=== PATIENT | male | born 1935 | race Caucasian/White ===

== ENCOUNTER 2016-04-29 13:36 | Emergency (ER) | payer MEDICARE, OTHER ==
[~2016-04-29] VITALS: Ht 180.3 cm; Wt 77.3 kg
[~2016-04-29 13:36] MED LIST: ALLERGY MEDICATION; ALLOPURINOL100 MG PO; BYSTOLIC5 MG PO; CLARITIN10 MG PO; HIGH CHOLESTEROL MED; HTN MEDICATION; LEVOTHYROXIN0.075 MG PO; LISINOPRIL/HCTZ1 TA1 PO; PROTONIX40 MG PO; SINGULAIR10 MG PO; SODIUM BICARB PO; ZOCOR40 MG PO
[2016-04-29 13:38] VITALS: BP 189/85; TEMP 97.5
[2016-04-29] MEDS ORDERED: NORCO 325 MG-51 TAB PO (14:19)
[2016-04-29] MEDS ORDERED: CEFTIN500 MG PO (14:19)
[2016-04-29] MEDS ORDERED: TENORMIN 5050 MG/TAB PO (14:26)
[2016-04-29] MEDS ORDERED: ZOCOR 20MG20 MG PO (14:27)
[2016-04-29] MEDS ORDERED: SYNTHROID0.088 MG/T PO (14:29)
[2016-04-29 14:50] VITALS: PULSE 78
== END 2016-04-29 14:58 | disposition home or self-care (01) ==
LOC: COL.ER 13:36
DX: S16.1XXA Strain of muscle, fascia and tendon at neck level, initial encounter (principal); J01.00 Acute maxillary sinusitis, unspecified; M43.6 Torticollis
CPT/HCPCS: J1885

== ENCOUNTER 2016-07-04 13:30 | Inpatient (IN) | payer MEDICARE, OTHER ==
[~2016-07-04] VITALS: Ht 177.8 cm; Wt 75.2 kg
[~2016-07-04 13:30] MED LIST changes: +CEFTIN500 MG PO; +NORCO 325 MG-51 TAB PO; +SYNTHROID0.088 MG/T PO; +TENORMIN 5050 MG/TAB PO; +ZOCOR 20MG20 MG PO
[2016-07-04] MEDS ORDERED: ASPIRIN E.C. 8181 MG PO (13:45)
[2016-07-04] MEDS ORDERED: CLARITIN 1010 MG/TAB PO (14:06)
[2016-07-04] MEDS ORDERED: COZAAR 25MG25 MG/TAB PO (14:07)
[2016-07-04] MEDS ORDERED: TYLENOL 8 HR PO (14:08)
[2016-07-04] MEDS ORDERED: SINGULAIR 110 MG/TAB PO (14:08)
[2016-07-04 14:17] LABS: BASO # 0.1 (0.0-0.2); BASO % 0.8 % (0.0-2.0); EOS # 0.2 (0.0-0.7); EOS % 2.1 % (0-4.0); GRAN % 70.9 % (42.2-75.2); LYMPH # 1.3 (1.2-3.4); LYMPH % 15.7 % (20.0-51.0); MEAN CELL VOLUME 105 fl (80.0-100.0); MEAN CORPUSCULAR HGB CONC 33 g/dl (33.0-37.0); MONO # 0.8 (0.1-0.6); MONO % 9.6 % (1.7-9.3); PLATELET COUNT 259 K/mm3 (130-400); RED BLOOD COUNT 3.05 M/mm3 (4.20-5.60); REDCELL DISTRIBUTION WIDTH-CV 13.2 % (11.5-14.5); WHITE BLOOD COUNT 8.5 K/mm3 (4.8-10.8)
[2016-07-04 14:19] LABS: ALBUMIN 3.8 gm/dL (3.5-5.0); BILIRUBIN,TOTAL 0.7 mg/dL (0.0-1.0); CALCIUM 8.8 mg/dL (8.4-10.2); CREATININE, serum 2.97 mg/dL (0.66-1.25); POTASSIUM 4.8 mmol/L (3.4-5.0); TOTAL PROTEIN 7.1 gm/dL (6.4-8.2)
[2016-07-04 14:20] LABS: INR 1.1 (0.8-3.0); PROTHROMBIN TIME 11.8 SECONDS (9.7-12.8)
[2016-07-04 14:23] LABS: PARTIAL THROMBOPLASTIN TIME 32.7 SECONDS (26.0-37.0)
[2016-07-04 14:32] LABS: TROPONIN-I 1.39 ng/mL (0.000-0.034)
[2016-07-04 15:17] LABS: HEMATOCRIT 31.9 % (42.0-52.0); HEMOGLOBIN 10.6 g/dl (13.5-18.0); MEAN CORPUSCULAR HEMOGLOBIN 35 pg (27.0-31.0)
[2016-07-04] MEDS ORDERED: COZAAR100 MG PO (16:59)
[2016-07-04] MEDS ORDERED: SODIUM BICARBO650 MG PO (17:01)
[2016-07-04 17:40] VITALS: BP 159/73; PULSE 75; TEMP 97.3
[2016-07-04 20:42] VITALS: BP 140/78; PULSE 71; TEMP 98.1
[2016-07-05] VITALS (7 sets, daily range): BP systolic 139–156; BP diastolic 62–81; PULSE 63–78; TEMP 97.5–99.3
[2016-07-05 08:00] LABS: CALCIUM 8.2 mg/dL (8.4-10.2); CREATININE, serum 2.63 mg/dL (0.66-1.25)
[2016-07-06] VITALS (110 sets, daily range): BP systolic 121–168; BP diastolic 62–92; PULSE 51–89; TEMP 97.7–99.2; O2SAT 90–100
[2016-07-06 08:06] LABS: MEAN CELL VOLUME 103 fl (80.0-100.0); MEAN CORPUSCULAR HGB CONC 33 g/dl (33.0-37.0); MEAN PLATELET VOLUME 9.3 fl (7.4-10.4); PLATELET COUNT 246 K/mm3 (130-400); WHITE BLOOD COUNT 6.9 K/mm3 (4.8-10.8)
[2016-07-06 08:11] LABS: CALCIUM 8.5 mg/dL (8.4-10.2); CREATININE, serum 2.61 mg/dL (0.66-1.25); POTASSIUM 4.8 mmol/L (3.4-5.0)
[2016-07-06 08:44] LABS: HEMATOCRIT 33.1 % (42.0-52.0); HEMOGLOBIN 10.9 g/dl (13.5-18.0); MEAN CORPUSCULAR HEMOGLOBIN 34 pg (27.0-31.0)
[2016-07-07] VITALS (337 sets, daily range): BP systolic 111–121; BP diastolic 57–75; PULSE 56–77; TEMP 97–98.1; O2SAT 94–100
[2016-07-07 06:19] LABS: MEAN CELL VOLUME 102 fl (80.0-100.0); MEAN CORPUSCULAR HGB CONC 34 g/dl (33.0-37.0); MEAN PLATELET VOLUME 9.2 fl (7.4-10.4); PLATELET COUNT 209 K/mm3 (130-400); RED BLOOD COUNT 2.83 M/mm3 (4.20-5.60); REDCELL DISTRIBUTION WIDTH-CV 13.1 % (11.5-14.5); WHITE BLOOD COUNT 7.1 K/mm3 (4.8-10.8)
[2016-07-07 06:23] LABS: HEMATOCRIT 28.9 % (42.0-52.0); HEMOGLOBIN 9.8 g/dl (13.5-18.0); MEAN CORPUSCULAR HEMOGLOBIN 35 pg (27.0-31.0)
[2016-07-07 06:31] LABS: CREATININE, serum 2.47 mg/dL (0.66-1.25); POTASSIUM 4.4 mmol/L (3.4-5.0)
[2016-07-07] MEDS ORDERED: PLAVIX 75MG TAB75 MG PO (11:42)
[2016-07-07] MEDS ORDERED: ASPIRIN E.C. 8181 MG PO (11:42)
[2016-07-07] MEDS ORDERED: IMDUR 60MG60 MG/TAB PO (11:43)
[2016-07-07] MEDS ORDERED: NITROSTAT0.4 MG/TAB SL (11:43)
[2016-07-07] MEDS ORDERED: LOPRESSOR 225 MG/TAB PO (11:44)
[2016-07-07] MEDS ORDERED: ZOCOR 40MG40 MG PO (11:45)
[2016-07-07] MEDS ORDERED: PEPCID 20MG TAB20 MG PO (11:45)
== END 2016-07-07 12:50 | disposition home or self-care (01) | DRG 247 ==
LOC: COL.ER 13:30 → MEDICAL 14:43 → ICU 07-06 16:09
PROVIDERS: Family Medicine; Internal Medicine Interventional Cardiology; Internal Medicine Nephrology
PROC: 027034Z Dilation of Coronary Artery, One Artery with Drug-eluting Intraluminal Device, Percutaneous Approach (ICD-10-PCS; principal; 2016-07-06)
PROC: B2111ZZ Fluoroscopy of Multiple Coronary Arteries using Low Osmolar Contrast (ICD-10-PCS; 2016-07-06)
PROC: 4A023N7 Measurement of Cardiac Sampling and Pressure, Left Heart, Percutaneous Approach (ICD-10-PCS; 2016-07-06)
PROC: B2151ZZ Fluoroscopy of Left Heart using Low Osmolar Contrast (ICD-10-PCS; 2016-07-06)
DX: I21.4 Non-ST elevation (NSTEMI) myocardial infarction (principal); E87.2 Acidosis; I12.9 Hypertensive chronic kidney disease with stage 1 through stage 4 chronic kidney disease, or unspecified chronic kidney disease; N18.3 Chronic kidney disease, stage 3 (moderate); Z87.891 Personal history of nicotine dependence; I25.10 Atherosclerotic heart disease of native coronary artery without angina pectoris
CPT/HCPCS: A9270-GY; C1725; C1760; C1769; C1874; C1887; C9600; J0583; J1940; J2250; J3010; J7040; Q9967

== ENCOUNTER 2016-09-12 11:27 | Inpatient (IN) | payer MEDICARE, OTHER ==
[~2016-09-12] VITALS: Ht 180.3 cm; Wt 76.8 kg
[~2016-09-12 11:27] MED LIST changes: +ASPIRIN E.C. 8181 MG PO; +CLARITIN 1010 MG/TAB PO; +COZAAR 25MG25 MG/TAB PO; +COZAAR100 MG PO; +IMDUR 60MG60 MG/TAB PO; +LOPRESSOR 225 MG/TAB PO; +NITROSTAT0.4 MG/TAB SL; +PEPCID 20MG TAB20 MG PO; +PLAVIX 75MG TAB75 MG PO; +SINGULAIR 110 MG/TAB PO; +SODIUM BICARBO650 MG PO; +TYLENOL 8 HR PO; +ZOCOR 40MG40 MG PO
[2016-09-12 12:43] VITALS: BP 156/65; PULSE 68; TEMP 98
[2016-09-12 13:33] LABS: MEAN CELL VOLUME 101 fl (80.0-100.0); MEAN CORPUSCULAR HGB CONC 33 g/dl (33.0-37.0); MEAN PLATELET VOLUME 8.9 fl (7.4-10.4); PLATELET COUNT 273 K/mm3 (130-400); RED BLOOD COUNT 2.83 M/mm3 (4.20-5.60); REDCELL DISTRIBUTION WIDTH-CV 13.4 % (11.5-14.5); WHITE BLOOD COUNT 9.7 K/mm3 (4.8-10.8)
[2016-09-12 13:45] LABS: ADD PATHOLOGY DIFF REVIEW NO; HEMATOCRIT 28.7 % (42.0-52.0); HEMOGLOBIN 9.4 g/dl (13.5-18.0); MEAN CORPUSCULAR HEMOGLOBIN 33 pg (27.0-31.0)
[2016-09-12 13:47] LABS: ADJUSTED CALCIUM 8.3 mg/dL (8.4-10.2); ALBUMIN 3.9 gm/dL (3.5-5.0); BILIRUBIN,TOTAL 0.8 mg/dL (0.0-1.0); C-REACTIVE PROTEIN 3.7 mg/dL (0.0-0.9); CALCIUM 8.2 mg/dL (8.4-10.2); POTASSIUM 4.6 mmol/L (3.4-5.0); TOTAL PROTEIN 6.8 gm/dL (6.4-8.2)
[2016-09-12 14:11] LABS: URIC ACID 8.4 mg/dL (3.5-8.5)
[2016-09-12 14:14] LABS: CREATININE, serum 5.07 mg/dL (0.66-1.25)
[2016-09-12 14:16] LABS: BAND 8 % (0-10); EOSINOPHIL 1 % (0-4); NEUTROPHILS 73 % (42.0-75.2); TOTAL CELLS COUNTED 100
[2016-09-12 14:17] LABS: ANISOCYTOSIS 1+
[2016-09-12 14:18] LABS: PLATELET ESTIMATE NORMAL (NORMAL)
[2016-09-12 15:06] LABS: PH 6 (5-8); SQUAMOUS EPITHELIAL None Seen /hpf; URINE APPEARANCE Clear; URINE BACTERIA None Seen /hpf; URINE BILIRUBIN Negative (NEGATIVE); URINE BLOOD 1+ (NEGATIVE); URINE COLOR Straw; URINE GLUCOSE Negative (NEGATIVE); URINE KETONE Negative (NEGATIVE); URINE RBC 0-2 /hpf; URINE UROBILINOGEN Negative (NEGATIVE)
[2016-09-12 15:45] VITALS: BP 183/72; PULSE 70; TEMP 97.6
[2016-09-12 16:21] LABS: FRACTIONAL EXCRETION OF NA+ 2.5 %
[2016-09-12 16:23] LABS: CREATININE, serum 5.07 mg/dL (0.66-1.25)
[2016-09-12 20:39] VITALS: BP 139/76; PULSE 60; TEMP 98.3
[2016-09-12 23:57] VITALS: BP 155/68; PULSE 95; TEMP 98.3
[2016-09-13 04:17] VITALS: BP 143/74; PULSE 63; TEMP 98.7
[2016-09-13 07:06] LABS: CALCIUM 7.8 mg/dL (8.4-10.2); POTASSIUM 4.9 mmol/L (3.4-5.0)
[2016-09-13 07:10] LABS: CREATININE, serum 5.02 mg/dL (0.66-1.25)
[2016-09-13 08:35] VITALS: BP 149/49; PULSE 95; TEMP 98.5
[2016-09-13 11:58] VITALS: BP 155/70; PULSE 51; TEMP 98.6
[2016-09-13 11:58] LABS: PH 6 (5-8); SQUAMOUS EPITHELIAL 0-2 /hpf; URINE APPEARANCE Clear; URINE BACTERIA None Seen /hpf; URINE BILIRUBIN Negative (NEGATIVE); URINE BLOOD 1+ (NEGATIVE); URINE COLOR Straw; URINE GLUCOSE Negative (NEGATIVE); URINE KETONE Negative (NEGATIVE); URINE RBC None Seen /hpf; URINE UROBILINOGEN Negative (NEGATIVE); URINE WBC 0-2 /hpf
[2016-09-13 15:23] VITALS: BP 147/64; PULSE 59; TEMP 98.3
[2016-09-13 18:02] LABS: URINE PROTEIN:CREAT RATIO 1.14 (0.00-0.14)
[2016-09-13 20:23] VITALS: BP 159/56; PULSE 70; TEMP 97.8
[2016-09-14 00:10] VITALS: BP 152/73; PULSE 62; TEMP 98.2
[2016-09-14 03:48] VITALS: BP 149/65; PULSE 65; TEMP 97.9
[2016-09-14 04:25] LABS: CALCIUM 8.1 mg/dL (8.4-10.2); POTASSIUM 4.6 mmol/L (3.4-5.0)
[2016-09-14 04:29] LABS: CREATININE, serum 4.76 mg/dL (0.66-1.25)
[2016-09-14 04:45] LABS: CREATININE, serum 4.76 mg/dL (0.66-1.25); FRACTIONAL EXCRETION OF NA+ 6.1 %
[2016-09-14 09:16] VITALS: BP 145/57; PULSE 63; TEMP 98.3
== END 2016-09-14 12:15 | disposition home or self-care (01) | DRG 683 ==
LOC: MEDICAL 11:27
PROVIDERS: Internal Medicine Nephrology
DX: N17.0 Acute kidney failure with tubular necrosis (principal); N39.0 Urinary tract infection, site not specified; E87.2 Acidosis; I12.9 Hypertensive chronic kidney disease with stage 1 through stage 4 chronic kidney disease, or unspecified chronic kidney disease; N18.3 Chronic kidney disease, stage 3 (moderate); Z95.5 Presence of coronary angioplasty implant and graft; Z88.0 Allergy status to penicillin; Z87.891 Personal history of nicotine dependence
CPT/HCPCS: G0365; J0882; J7030

== ENCOUNTER 2016-10-31 11:29 | Outpatient (RCR) | payer MEDICARE, OTHER | END 2016-11-01 | disposition home or self-care (01) | LOC: COL.CR | DX: Z48.812 Encounter for surgical aftercare following surgery on the circulatory system (principal); Z95.5 Presence of coronary angioplasty implant and graft; I25.10 Atherosclerotic heart disease of native coronary artery without angina pectoris ==

== ENCOUNTER 2016-11-28 11:25 | Outpatient (RCR) | payer MEDICARE, OTHER | END 2016-12-03 08:17 | disposition home or self-care (01) | LOC: COL.CR 11:25 | DX: Z48.812 Encounter for surgical aftercare following surgery on the circulatory system (principal); Z95.5 Presence of coronary angioplasty implant and graft; I25.10 Atherosclerotic heart disease of native coronary artery without angina pectoris ==

== ENCOUNTER 2020-03-02 18:24 | Emergency (ER) | payer MEDICARE, OTHER ==
[~2020-03-02] VITALS: Ht 177.8 cm; Wt 77.3 kg
[2020-03-02 18:32] VITALS: TEMP 99.2
[2020-03-02 18:59] LABS: BASO % 0.3 % (0.0-2.0); EOS # 0.2 (0.0-0.7); EOS % 1.8 % (0-4.0); GRAN % 78.9 % (42.2-75.2); HEMOGLOBIN 10.6 g/dl (13.5-18.0); LYMPH # 1.3 (1.2-3.4); LYMPH % 9.9 % (20.0-51.0); MEAN CELL VOLUME 96 fl (80.0-100.0); MEAN CORPUSCULAR HEMOGLOBIN 31 pg (27.0-31.0); MEAN CORPUSCULAR HGB CONC 33 g/dl (33.0-37.0); MEAN PLATELET VOLUME 9.2 fl (7.4-10.4); MONO # 1.1 (0.1-0.6); MONO % 8.4 % (1.7-9.3); PLATELET COUNT 214 K/mm3 (130-400); RED BLOOD COUNT 3.39 M/mm3 (4.20-5.60); REDCELL DISTRIBUTION WIDTH-CV 14.2 % (11.5-14.5)
[2020-03-02 19:04] LABS: HEMATOCRIT 32.6 % (42.0-52.0)
[2020-03-02 19:06] LABS: INR 1.1 (0.8-3.0); PROTHROMBIN TIME 12.5 SECONDS (9.7-12.8)
[2020-03-02 19:09] LABS: PARTIAL THROMBOPLASTIN TIME 32.8 SECONDS (26.0-37.0)
[2020-03-02 19:12] LABS: ALBUMIN 4.1 gm/dL (3.5-5.0); CREATININE, serum 3.44 (0.66-1.25); MAGNESIUM 1.3 mg/dL (1.6-2.3); POTASSIUM 4.5 mmol/L (3.4-5.0)
[2020-03-02 19:28] LABS: TROPONIN-I 19.4 ng/mL (0.000-0.035)
[2020-03-02 19:42] LABS: THYROID STIMULATING HORMONE 1.65 uIU/mL (0.465-4.680)
[2020-03-02 21:00] VITALS: BP 159/85; PULSE 88
== END 2020-03-02 21:00 | disposition short-term general hospital (02) ==
LOC: COL.ER 18:24
PROVIDERS: Emergency Medicine
DX: I21.4 Non-ST elevation (NSTEMI) myocardial infarction (principal); I48.20 Chronic atrial fibrillation, unspecified; R79.89 Other specified abnormal findings of blood chemistry; I25.10 Atherosclerotic heart disease of native coronary artery without angina pectoris; Z20.828 Contact with and (suspected) exposure to other viral communicable diseases; Z95.5 Presence of coronary angioplasty implant and graft; Z87.891 Personal history of nicotine dependence; Z88.0 Allergy status to penicillin; Z88.8 Allergy status to other drugs, medicaments and biological substances; Z79.82 Long term (current) use of aspirin; Z79.02 Long term (current) use of antithrombotics/antiplatelets
CPT/HCPCS: J1644

== ENCOUNTER 2020-03-25 10:37 | Outpatient (RCR) | payer MEDICARE, OTHER ==
[~2020-03-25 10:37] MED LIST changes: -SYNTHROID0.088 MG/T PO; +SYNTHROID0.1 MG/TAB PO
[2020-03-25] MEDS ORDERED: COREG 6.256.25 MG/TA PO (17:47)
[2020-03-25] MEDS ORDERED: CORDARONE200 MG/TAB PO (17:48)
[2020-03-25] MEDS ORDERED: NORVASC2.5 MG PO (17:48)
[2020-03-25] MEDS ORDERED: LIPITOR20 MG PO (17:49)
[2020-03-25] MEDS ORDERED: ELIQUIS 2.5 PO (17:49)
[2020-03-28] MEDS ORDERED: ZITHROMAX 250M250 MG PO (10:30)
[2020-03-28] MEDS ORDERED: COREG 3.123.125 MG/T PO (10:32)
[2020-03-28] MEDS ORDERED: SODIUM BICARBO650 MG PO (10:38)
[2020-03-28] MEDS ORDERED: LASIX 40MG TABL40 MG PO (10:40)
[2020-04-11] MEDS ORDERED: COREG 3.123.125 MG/T PO (11:46)
[2020-04-11] MEDS ORDERED: SODIUM BICARBO650 MG PO (11:52)
[2020-04-11] MEDS ORDERED: CORDARONE200 MG/TAB PO (11:52)
[2020-04-11] MEDS ORDERED: IMDUR 60MG60 MG/TAB PO (11:53)
[2020-04-11] MEDS ORDERED: LASIX 40MG TABL40 MG PO (11:54)
[2020-04-11] MEDS ORDERED: LIPITOR20 MG PO (11:55)
[2020-04-11] MEDS ORDERED: COLCRYS0.6 MG PO (11:57)
[2020-04-13] MEDS ORDERED: LASIX 40MG TABL40 MG PO (15:04)
[2020-04-13] MEDS ORDERED: SODIUM BICARBO650 MG PO (15:04)
[2020-04-13] MEDS ORDERED: COREG 3.123.125 MG/T PO (15:06)
== END 2020-04-11 | disposition home or self-care (01) ==
LOC: COL.CR
DX: I21.4 Non-ST elevation (NSTEMI) myocardial infarction (principal)

== ENCOUNTER 2020-03-25 12:35 | Inpatient (IN) | payer MEDICARE, OTHER ==
[2020-03-25] VITALS (302 sets, daily range): BP systolic 152–154; BP diastolic 78–114; PULSE 65–74; TEMP 97.5–98.8; O2SAT 77–100
[~2020-03-25] VITALS: Ht 180.3 cm; Wt 75.9 kg
[2020-03-25 13:14] LABS: BASO # 0.1 (0.0-0.2); BASO % 1.1 % (0.0-2.0); EOS # 0.8 (0.0-0.7); EOS % 6.5 % (0-4.0); GRAN # 7.4 (1.4-6.5); HEMOGLOBIN 10.5 g/dl (13.5-18.0); LYMPH # 2.9 (1.2-3.4); LYMPH % 23.1 % (20.0-51.0); MEAN CELL VOLUME 100 fl (80.0-100.0); MEAN CORPUSCULAR HEMOGLOBIN 32 pg (27.0-31.0); MEAN CORPUSCULAR HGB CONC 32 g/dl (33.0-37.0); MEAN PLATELET VOLUME 9.7 fl (7.4-10.4); MONO # 1.1 (0.1-0.6); MONO % 8.8 % (1.7-9.3); PLATELET COUNT 390 K/mm3 (130-400); REDCELL DISTRIBUTION WIDTH-CV 14.5 % (11.5-14.5)
[2020-03-25 13:17] LABS: ALBUMIN 3.9 gm/dL (3.5-5.0); BILIRUBIN,TOTAL 0.6 mg/dL (0.0-1.0); CALCIUM 8.9 mg/dL (8.4-10.2); CREATININE, serum 4.68 (0.66-1.25); HEMATOCRIT 33.1 % (42.0-52.0); POTASSIUM 5.2 mmol/L (3.4-5.0); TOTAL PROTEIN 6.7 gm/dL (6.4-8.2)
[2020-03-25 14:22] LABS: TROPONIN-I 0.104 ng/mL (0.000-0.035)
[2020-03-25] MEDS ORDERED: COREG 6.256.25 MG/TA PO (17:47)
[2020-03-25] MEDS ORDERED: NORVASC2.5 MG PO (17:48)
[2020-03-25] MEDS ORDERED: CORDARONE200 MG/TAB PO (17:48)
[2020-03-25] MEDS ORDERED: ELIQUIS 2.5 PO (17:49)
[2020-03-25] MEDS ORDERED: LIPITOR20 MG PO (17:49)
[2020-03-25 18:29] LABS: IRON,SERUM 79 ug/dL (35-150)
[2020-03-25 18:38] LABS: TOTAL IRON BINDING CAPACITY 319 ug/dL (261-462)
[2020-03-25 19:32] LABS: INR 1.5 (0.8-3.0); PROTHROMBIN TIME 17.3 SECONDS (9.7-12.8)
[2020-03-25 19:51] LABS: PH 6 (5-8); SQUAMOUS EPITHELIAL None Seen /hpf; URINE APPEARANCE Clear; URINE BACTERIA None Seen /hpf; URINE BILIRUBIN Negative (NEGATIVE); URINE BLOOD 2+ (NEGATIVE); URINE COLOR Colorless; URINE GLUCOSE Negative (NEGATIVE); URINE KETONE Negative (NEGATIVE); URINE LEUKOCYTE ESTERASE Negative (NEGATIVE); URINE NITRATE Negative (NEGATIVE); URINE PROTEIN(semi-quant) Negative (NEGATIVE); URINE UROBILINOGEN Negative (NEGATIVE); URINE WBC 0-2 /hpf
[2020-03-25 19:54] LABS: URINE PROTEIN:CREAT RATIO 1.11 (0.00-0.14)
[2020-03-25 20:06] LABS: COLLECTION METHOD CLEAN CATCH
--- NOTE | 2020-03-25 21:52 | NUR ---
Critical HepXA level recieved, gtt paused Cardiac Rehab Nurse obtained HepXA sample on same arm as heparin gtt while infusing. 2205 phelebtomost back in room obtaining new sample
--- NOTE | 2020-03-25 22:40 | NUR ---
2240 Critical recieved for HepXa 2240 Bedros. notified, and that pt is also on Eliquis. Informed to notifiy MD Yady. Informed pt also off BiPAP on nasal cannula and pt states feeling much better 2240 MD Jovany notified of abovementioned. Heparin gtt ordered to be discontinued, q2hr HepXa requested and order recieved until less than 2.0
[2020-03-26] VITALS (617 sets, daily range): BP systolic 103–143; BP diastolic 49–73; PULSE 63–73; TEMP 97.3–98.4; O2SAT 86–100
[2020-03-26 04:43] LABS: BASO # 0.1 (0.0-0.2); BASO % 0.7 % (0.0-2.0); EOS # 0.3 (0.0-0.7); GRAN # 5.2 (1.4-6.5); GRAN % 74.5 % (42.2-75.2); LYMPH # 0.8 (1.2-3.4); LYMPH % 11.7 % (20.0-51.0); MEAN CELL VOLUME 97 fl (80.0-100.0); MEAN CORPUSCULAR HGB CONC 32 g/dl (33.0-37.0); MEAN PLATELET VOLUME 9.3 fl (7.4-10.4); MONO # 0.6 (0.1-0.6); MONO % 8.8 % (1.7-9.3); REDCELL DISTRIBUTION WIDTH-CV 14.5 % (11.5-14.5)
[2020-03-26 05:03] LABS: ALBUMIN 3.8 gm/dL (3.5-5.0); BILIRUBIN,TOTAL 0.8 mg/dL (0.0-1.0); CALCIUM 9.1 mg/dL (8.4-10.2); CREATININE, serum 4.92 (0.66-1.25); POTASSIUM 4.8 mmol/L (3.4-5.0); TOTAL PROTEIN 6.6 gm/dL (6.4-8.2)
--- NOTE | 2020-03-26 05:13 | NUR ---
MD Jovany notified of most recent platlet drop and HepXa level, pt is asymptomatic with no signs of bleeding Orders recieved to discontinue q2hr serial HepXa/PTT labs, as "HepXa levels will be artificially high due to pt being on eliquis" per MD Jovany Pt updated, no questions or concerns. Pt wishes to go back to sleep
[2020-03-26 05:14] LABS: HEMATOCRIT 30.1 % (42.0-52.0); HEMOGLOBIN 9.6 g/dl (13.5-18.0); MEAN CORPUSCULAR HEMOGLOBIN 31 pg (27.0-31.0)
[2020-03-26 05:15] LABS: PLATELET COUNT 241 K/mm3 (130-400)
[2020-03-26 05:18] LABS: PARTIAL THROMBOPLASTIN TIME 40.5 SECONDS (26.0-37.0)
[2020-03-26 05:33] LABS: TSH w REFLEX 3.52 uIU/mL (0.465-4.680)
--- NOTE | 2020-03-26 08:00 | NUR ---
Shift assessment complete at this time. Plan of care reviewed at bedside with patient. Additional time taken to address any other needs or concerns. Vitals stable at this time. Denies pain or any other discomforts. Bed in low position, call light within reach.
--- NOTE | 2020-03-26 13:29 | NUR ---
SW was not able to contact patient, and so called patients Mahsa to complete intake assessment. SP indicated that patient currently resides in [facility] with SP(Mahsa) [phone] as care support and EMR. Patient was independeent with ADL's and does have a DPOA. SP reports that patient utilizes a CPAP machine at night, and a toilet rise. Patient's PCP is Dr. Land, with no upcoming appointments. Patient receives medications from [facility] pharmacy with no concerns. SP declined [facility] services at this time, and was educated about community resources.
--- NOTE | 2020-03-26 18:16 | NUR ---
PT ARRIVED to unit @ 1730 via wheelchair and assisted by one to bathroom an had a BM. Steady standby ambulation. Tele order complete on transfer but discussed with ICU tranferring nurse and likely error. PT with hx of Afib and CAD. will leave tele overnight and re-assess with dr Ely in Am. 24hr urine collection started @ 1730. denies pain. no major skin issues noted but some redness to left back from telemtry patch. Rascon intact and draining. on 2L NC. VSS as charted. IV to lt fa intact and iron infusion complete. dinner served and pt ate 60%. call light within reach. report given to oncoming nurse Salena.
--- NOTE | 2020-03-26 20:00 | NUR ---
Report recieved, assumed care for maintenance technician 2nd shift. Assessment complete. VS stable. A&Ox3. Denies chest pain/nausea. States only gets short of breath with activity. O2@2L/NC. INT to left forearm flushes without difficulty. Rascon cath with deisi colored urine-on ice due to 24 hour urine collection. Fluid restriction being enforced. Plan of care discussed for this shift to include HS meds/calling for needs. Verbalizes understanding. Call light in reach. Will monitor.
[2020-03-27] VITALS (8 sets, daily range): BP systolic 102–131; BP diastolic 41–75; PULSE 59–72; TEMP 97.6–98.5
--- NOTE | 2020-03-27 | NUR ---
Resting in bed eyes closed. 24 hour urine collection continues-fresh ice applied. Minimal output at this time. Has followed fluid restriction well so far this shift. Denies pain/nausea/shortness of breath. VS have been stable. Denies questions/concerns. Call light in reach. Will monitor.
--- NOTE | 2020-03-27 05:24 | NUR ---
Rested well this shift. Denied pain/nausea. Short of breath with activity. Ambulated to bathroom with stand by assist-had a large liquid BM. Vitals remained stable. 24 hour urine collection continues-350 out for this shift. Fluid restriction enforced. Denies questions/concerns. Call light in reach. Will monitor.
[2020-03-27 06:09] LABS: ALBUMIN 3.3 gm/dL (3.5-5.0); BASO % 0.7 % (0.0-2.0); BILIRUBIN,TOTAL 0.5 mg/dL (0.0-1.0); CALCIUM 8.7 mg/dL (8.4-10.2); CREATININE, serum 4.87 (0.66-1.25); EOS # 0.4 (0.0-0.7); EOS % 6.5 % (0-4.0); GRAN % 64.5 % (42.2-75.2); LYMPH % 15.8 % (20.0-51.0); MEAN CELL VOLUME 98 fl (80.0-100.0); MEAN CORPUSCULAR HGB CONC 33 g/dl (33.0-37.0); MEAN PLATELET VOLUME 9.5 fl (7.4-10.4); MONO # 0.8 (0.1-0.6); MONO % 12.2 % (1.7-9.3); PLATELET COUNT 212 K/mm3 (130-400); POTASSIUM 4.5 mmol/L (3.4-5.0); RED BLOOD COUNT 2.75 M/mm3 (4.20-5.60); REDCELL DISTRIBUTION WIDTH-CV 14.3 % (11.5-14.5); TOTAL PROTEIN 5.8 gm/dL (6.4-8.2)
[2020-03-27 06:26] LABS: HEMATOCRIT 26.8 % (42.0-52.0); HEMOGLOBIN 8.7 g/dl (13.5-18.0); MEAN CORPUSCULAR HEMOGLOBIN 32 pg (27.0-31.0)
--- NOTE | 2020-03-27 07:28 | NUR ---
Bedside shift report recieved. pt resting in bed. awoke when we came into room. would like some more sleep. call light within reach. AOX4.
--- NOTE | 2020-03-27 09:17 | NUR ---
MORNING MEDS GIVEN. PT AOX4. denies SOB or chest pain. low BP thus coreg and norvasc. no other needs at this time. denies vertigo. 24 urne collection ongoing.
--- NOTE | 2020-03-27 11:08 | NUR ---
order clarified to DC tele. Dr Ely also notified of low BP 104/45 and help matt and coreg
--- NOTE | 2020-03-27 18:00 | NUR ---
zaire dc'd @ 1800. no complications noted
[2020-03-27 18:02] LABS: URINE TOTAL VOLUME 800 mL
[2020-03-27 18:12] LABS: CREATININE, serum 4.72 (0.66-1.25)
[2020-03-27 18:13] LABS: URINE CREATININE CLEARANCE 10.1 mL/min (97-137)
--- NOTE | 2020-03-27 19:30 | NUR ---
RECEIVED CHANGE OF SHIFT REPORT FROM DAY SHIFT NURSEZAHRA.
[2020-03-28 03:24] VITALS: BP 113/56; PULSE 63; TEMP 98.1
[2020-03-28 06:19] LABS: BASO # 0.1 (0.0-0.2); BASO % 0.9 % (0.0-2.0); EOS # 0.5 (0.0-0.7); EOS % 7.1 % (0-4.0); GRAN # 3.9 (1.4-6.5); GRAN % 59.8 % (42.2-75.2); LYMPH # 1.3 (1.2-3.4); LYMPH % 20.2 % (20.0-51.0); MEAN CELL VOLUME 96 fl (80.0-100.0); MEAN CORPUSCULAR HGB CONC 32 g/dl (33.0-37.0); MEAN PLATELET VOLUME 9.4 fl (7.4-10.4); MONO # 0.7 (0.1-0.6); MONO % 11.1 % (1.7-9.3); PLATELET COUNT 222 K/mm3 (130-400); RED BLOOD COUNT 2.81 M/mm3 (4.20-5.60); REDCELL DISTRIBUTION WIDTH-CV 14.3 % (11.5-14.5)
[2020-03-28 06:26] LABS: ALBUMIN 3.3 gm/dL (3.5-5.0); BILIRUBIN,TOTAL 0.4 mg/dL (0.0-1.0); CALCIUM 8.8 mg/dL (8.4-10.2); CREATININE, serum 4.89 (0.66-1.25); POTASSIUM 4.1 mmol/L (3.4-5.0)
[2020-03-28 06:31] LABS: HEMATOCRIT 27.1 % (42.0-52.0); HEMOGLOBIN 8.7 g/dl (13.5-18.0); MEAN CORPUSCULAR HEMOGLOBIN 31 pg (27.0-31.0)
--- NOTE | 2020-03-28 07:38 | NUR ---
CHANGE OF SHIFT REPORT GIVEN TO DAY SHIFT NURSEHARI.
[2020-03-28 08:02] VITALS: BP 116/47; PULSE 63; TEMP 98.2
--- NOTE | 2020-03-28 08:17 | NUR ---
Assessment complete. Patient sitting up in bed with breakfast at this time. States that he feels great and is eager to go home. No complaints of pain or discomfort. IV site is CD&I, flushed well. No evident edema in upper or lower extremities. Pt denies SOB. Will continue to monitor. Call light is in reach.
[2020-03-28] MEDS ORDERED: ZITHROMAX 250M250 MG PO (10:30)
[2020-03-28] MEDS ORDERED: COREG 3.123.125 MG/T PO (10:32)
[2020-03-28] MEDS ORDERED: SODIUM BICARBO650 MG PO (10:38)
[2020-03-28] MEDS ORDERED: LASIX 40MG TABL40 MG PO (10:40)
[2020-03-28 11:25] VITALS: BP 108/58; PULSE 63; TEMP 97.9
--- NOTE | 2020-03-28 13:28 | NUR ---
First visit from the health information clerk. No needs right now.
--- NOTE | 2020-03-28 16:19 | NUR ---
Patient left the floor at this time. Discharge paperwork was discussed. No further questions or concerns were expressed.
== END 2020-03-28 16:20 | disposition home or self-care (01) | DRG 193 ==
LOC: COL.ER 12:35 → ICU 13:34 → MEDICAL 03-26 17:34
PROVIDERS: Family Medicine; Internal Medicine Cardiovascular Disease; ADMIT Internal Medicine Nephrology
DX: J18.9 Pneumonia, unspecified organism (principal); J96.01 Acute respiratory failure with hypoxia; N18.4 Chronic kidney disease, stage 4 (severe); E87.2 Acidosis; I16.1 Hypertensive emergency; I50.30 Unspecified diastolic (congestive) heart failure; N17.9 Acute kidney failure, unspecified; I13.0 Hypertensive heart and chronic kidney disease with heart failure and stage 1 through stage 4 chronic kidney disease, or unspecified chronic kidney disease; Z20.828 Contact with and (suspected) exposure to other viral communicable diseases; E03.9 Hypothyroidism, unspecified; I48.91 Unspecified atrial fibrillation; D63.1 Anemia in chronic kidney disease; R73.9 Hyperglycemia, unspecified; R79.89 Other specified abnormal findings of blood chemistry; M17.10 Unilateral primary osteoarthritis, unspecified knee; I25.10 Atherosclerotic heart disease of native coronary artery without angina pectoris; M10.9 Gout, unspecified; E87.5 Hyperkalemia; I25.2 Old myocardial infarction; E78.5 Hyperlipidemia, unspecified; Z79.82 Long term (current) use of aspirin; Z95.818 Presence of other cardiac implants and grafts; Z87.891 Personal history of nicotine dependence; Z88.0 Allergy status to penicillin
CPT/HCPCS: J1644; J1940; J2916; Q5106

== ENCOUNTER 2021-01-11 13:32 | Inpatient (IN) | payer MEDICARE, OTHER ==
[~2021-01-11] VITALS: Ht 180.3 cm; Wt 72.7 kg
--- NOTE | 2021-01-11 00:48 | NUR ---
Dr. Ely notified to request order for telemetry implementation and VTE prophylaxis. Received verbal orders to implement telemetry and begin SCDs for VTE prophylaxis.
[~2021-01-11 13:32] MED LIST changes: +COLCRYS0.6 MG PO; +CORDARONE200 MG/TAB PO; +COREG 3.123.125 MG/T PO; +COREG 6.256.25 MG/TA PO; +ELIQUIS 2.5 PO; +LASIX 40MG TABL40 MG PO; +LIPITOR20 MG PO; +NORVASC2.5 MG PO; +ZITHROMAX 250M250 MG PO
[2021-01-11 13:42] LABS: BASO # 0.1 K/mm3 (0.0-0.2); BASO % 0.6 % (0.0-2.0); EOS # 0.3 K/mm3 (0.0-0.7); EOS % 3.9 % (0-4.0); GRAN # 5.6 K/mm3 (1.4-6.5); GRAN % 69.6 % (42.2-75.2); HEMATOCRIT 35.1 % (42.0-52.0); HEMOGLOBIN 11.7 g/dl (13.5-18.0); LYMPH # 1.3 K/mm3 (1.2-3.4); LYMPH % 16.1 % (20.0-51.0); MEAN CELL VOLUME 108 fl (80.0-100.0); MEAN CORPUSCULAR HEMOGLOBIN 36 pg (27.0-31.0); MEAN CORPUSCULAR HGB CONC 33 g/dl (33.0-37.0); MEAN PLATELET VOLUME 8.9 fl (7.4-10.4); MONO # 0.7 K/mm3 (0.1-0.6); PLATELET COUNT 197 K/mm3 (130-400); RED BLOOD COUNT 3.26 M/mm3 (4.20-5.60); REDCELL DISTRIBUTION WIDTH-CV 14.4 % (11.5-14.5)
[2021-01-11 14:11] LABS: TROPONIN-I 0.049 ng/mL (0.00-0.033)
[2021-01-11 14:22] LABS: ARTERIAL BLD GAS O2 SATURATION 91.9 % (92-100); ARTERIAL BLD GAS TCO2 CT 23.5; ARTERIAL BLOOD GAS BASE EXCESS -0.8 (-2-2); ARTERIAL BLOOD GAS HCO3 22.5 meq/L (22-26); ARTERIAL BLOOD GAS PCO2 32.7 mmHg (35-45); ARTERIAL BLOOD GAS PO2 61.8 mmHg (80-100); ARTERIAL BLOOD GAS pH 7.46 (7.35-7.45)
[2021-01-11 14:46] LABS: ALBUMIN 4.1 gm/dL (3.4-4.8); BILIRUBIN,TOTAL 0.7 mg/dL (0.2-1.2); CREATININE, serum 5.5 mg/dL (0.72-1.25); POTASSIUM 4.6 mmol/L (3.5-4.5)
[2021-01-11 17:34] VITALS: BP 133/64; PULSE 69; TEMP 98.6
--- NOTE | 2021-01-11 17:57 | NUR ---
PATIENT TOLERATED HD TX WITH 2.45 L OF FLUID REMOVED. NEXT HD TX PENDING LABS & ASSESSMENT.
[2021-01-11 19:09] VITALS: BP 139/68; PULSE 60; TEMP 97.4
[2021-01-11] MEDS ORDERED: COREG 3.123.125 MG/T PO (19:43)
--- NOTE | 2021-01-11 19:51 | NUR ---
RECEIVED REPORT FROM DAY SHIFT, PT MED REC NOT COMPLETED. MEDICATIONS FAXED FROM [facility]. PT NOT A GOOD HISTORIAN OF CURRENT TIME HE TAKES MEDICATIONS, STATING "I PULL THEM OUT AND NUMBER THEM." DR. MORA SUCCESSFULLY NOTIFIED OF COMPLETED MED REC AND UNKNOWN TIMES.
--- NOTE | 2021-01-11 21:30 | NUR ---
Pt assessment and med rec completed to best of ability. Pt given gown to change in. Pt alert and oriented. Pt lungs clear to auscultation, non-productive cough noted. Pt states cough started today. Pt has umbilical hernia, states he has had it for quite some time. Denies pain with palpation of abdomen. Pt denies SOA or pain at this time. Pt denies having anyone come speak with him about procedure in AM. PT present at bedside when received on floor. Pt independent in room at this time. Call light within reach.
[2021-01-11 23:08] VITALS: BP 117/55; PULSE 61; TEMP 98.9
--- NOTE | 2021-01-11 23:41 | NUR ---
PT UPDATED ON SCHEDULE FOR PROCEDURES TOMORROW. PT STATES HAS LIST OF NUMBERED MEDICATIONS FOR MEDICATION RECONCILIATION. MED REC UPDATED AT THIS TIME. PT AND PT STATE PREFERRED PHARMACY IS [facility] [place], MAILED IN MEDICATIONS. HOWEVER, IF NEEDED IMMEDIATELY, THEY USE [facility] IN [place], [place].
[2021-01-12 04:08] VITALS: BP 132/47; PULSE 56; TEMP 98.4
--- NOTE | 2021-01-12 04:57 | NUR ---
PT CONTINUING ON PLAN OF CARE. PT MAINTAINED NPO STATUS AT 0000. PT ABLE TO AMBULATE INDEPENDENTLY IN ROOM. PT VITAL SIGNS STABLE THIS SHIFT, TELEMETRY SINUS RHYTHM. PT FREE FROM INJURY THIS SHIFT.
--- NOTE | 2021-01-12 05:39 | NUR ---
NOTIFIED ON-CALL CARDIOLOGY, DR. SEYMOUR OF NEEDING PROVIDER TO EDUCATED PT IN ORDER TO OBTAIN INFORMED CONSENT FOR PROCEDURE THIS AM. RECEIVED INSTRUCTION TO CALL DR. MOYER AT 0630 OR 0730 FOR EDUCATION.
--- NOTE | 2021-01-12 06:34 | NUR ---
NOTIFIED DR. MOYER OF NEEDING EDUCATION PRIOR TO SIGNING INFORMED CONSENT. INSTRUCTED TO CALL [facility]. MULTIPLE ATTEMPTS TO FIND CORRECT NUMBER, UNABLE TO FIND. WILL PASS ON TO DAY SHIFT NEED FOR INFORMED CONSENT.
[2021-01-12 07:48] LABS: HEMOGLOBIN 10.4 g/dl (13.5-18.0); MEAN CELL VOLUME 108 fl (80.0-100.0); MEAN CORPUSCULAR HEMOGLOBIN 36 pg (27.0-31.0); MEAN CORPUSCULAR HGB CONC 33 g/dl (33.0-37.0); MEAN PLATELET VOLUME 9.1 fl (7.4-10.4); PLATELET COUNT 197 K/mm3 (130-400); RED BLOOD COUNT 2.91 M/mm3 (4.20-5.60); REDCELL DISTRIBUTION WIDTH-CV 14.5 % (11.5-14.5)
[2021-01-12 07:54] LABS: HEMATOCRIT 31.3 % (42.0-52.0)
[2021-01-12 07:57] LABS: CALCIUM 8.9 mg/dL (8.4-10.2); CREATININE, serum 4.72 mg/dL (0.72-1.25); POTASSIUM 4.2 mmol/L (3.5-4.5); PROTHROMBIN TIME 11.5 SECONDS (9.7-12.8)
[2021-01-12 07:58] VITALS: BP 137/64; PULSE 62; TEMP 98
[2021-01-12 08:01] LABS: PARTIAL THROMBOPLASTIN TIME 26.6 SECONDS (26.0-37.0)
--- NOTE | 2021-01-12 09:10 | NUR ---
Pt pleasant states he feels a little nervous about today. Some brusing noted to left forearm. Iv siete intact no reddness/swelling/pain at site. Cardiology in to see pt for information regarding procedure. Pt stated in his own words what procedure is and what will be performed.
--- NOTE | 2021-01-12 09:26 | NUR ---
Initial visit; Patient thanked Artist Woodblock for looking in on him, offeering God's blessings and prayer prior to his surgical procedure with Dr. Rebolledo. Artist Woodblock will look in on patient while he is here.
--- NOTE | 2021-01-12 10:08 | NUR ---
New critical result of troponin, .470. Nurse practitioner Liliane Major notified [id number]-fogs and is aware. Tentative plan for cath around 1430 today, no new orders at this time. Pt. remains NPO. Juliane completed this AM.
[2021-01-12 11:20] VITALS: BP 132/64; PULSE 59; TEMP 98.3
--- NOTE | 2021-01-12 11:36 | NUR ---
Consent signed, plan for cardiac cath this afternoon. Pt. agreeable w/ plan of care. Pt. denies needs, call light and belongings in reach.
--- NOTE | 2021-01-12 12:45 | NUR ---
Pt. was 97-98% on 2L O2. This RN removed oxygen and reassessed after 30 minutes, pt.'s O2 sat on room air is now 93% and pt. denies shortness of breath.
--- NOTE | 2021-01-12 12:45 | NUR ---
viscose department worker met with the patient to discuss discharge plan. Patient lives at home with his Mahsa ([phone]) in [place]. Patient reports to being fully independent with his ADL's and does not utilize any DME within the home. Patient has been weaned from 8L O2 at admit down to 2L currently but doesn't feel like he really needs it. Educated him that if he was to need to go home with O2 we will help set that up before DC. PCP is Dr. Spann and utilizes the [place] for most of his medications, however he does use [facility] for short term needs. Patient is currently on dialysis M,,,F with an 8:30 chair time. Reports he drives himself to and from these appointments. States he does have a DPOA-HC/Living Will established and that his is his agent. Patient is planning on returning home with no concerns at this time. Discharge plan: Home with spouse
--- NOTE | 2021-01-12 12:58 | NUR ---
This RN received a call from Liliane Major NP. Liliane reports Dr. Rebolledo is unable to perform the cardiac cath today and the cath will be scheduled for tomorrow. The pt. and his Mahsa have been notified. ARIELLE Momin reports it is OK to resume renal diet. Pt. ordered lunch and water has been provided, 1500ml fluid restriction followed.
--- NOTE | 2021-01-12 14:22 | NUR ---
Primary nurse was assisted with [phone] patient care by [employer] student Adriane Scherer and [employer] instructor Zakiya Abarca MSN, RN
[2021-01-12 15:45] VITALS: BP 117/48; PULSE 61; TEMP 98
[2021-01-12 20:31] VITALS: BP 110/49; PULSE 59; TEMP 97.8
--- NOTE | 2021-01-12 22:05 | NUR ---
PT RESTING IN BED. EVENING MEDICATION GIVEN. ASSESSMENT COMPLETED. DENIES ANY PAIN OR NEEDS. EDUCATED PT ON THE PLAN FOR TOMORROW. WILL CONTINUE TO MONITOR.
[2021-01-13] VITALS (14 sets, daily range): BP systolic 108–158; BP diastolic 48–73; PULSE 55–63; TEMP 97.7–98.7
--- NOTE | 2021-01-13 05:46 | NUR ---
PT HAD AN UNEVENTFUL, RESTFUL NIGHT. HAS BEEN NPO SINCE MIDNIGHT. WILL CONTINUE TO MONITOR.
[2021-01-13 09:00] LABS: BASO # 0.1 K/mm3 (0.0-0.2); BASO % 0.8 % (0.0-2.0); EOS # 0.4 K/mm3 (0.0-0.7); EOS % 5.9 % (0-4.0); GRAN # 3.8 K/mm3 (1.4-6.5); GRAN % 61.8 % (42.2-75.2); HEMOGLOBIN 10.9 g/dl (13.5-18.0); LYMPH # 1.3 K/mm3 (1.2-3.4); LYMPH % 21.2 % (20.0-51.0); MEAN CELL VOLUME 108 fl (80.0-100.0); MEAN CORPUSCULAR HEMOGLOBIN 36 pg (27.0-31.0); MEAN CORPUSCULAR HGB CONC 33 g/dl (33.0-37.0); MONO # 0.6 K/mm3 (0.1-0.6); MONO % 9.6 % (1.7-9.3); PLATELET COUNT 215 K/mm3 (130-400); RED BLOOD COUNT 3.06 M/mm3 (4.20-5.60); REDCELL DISTRIBUTION WIDTH-CV 14.5 % (11.5-14.5)
[2021-01-13 09:10] LABS: PROTHROMBIN TIME 11.4 SECONDS (9.7-12.8)
[2021-01-13 09:12] LABS: PARTIAL THROMBOPLASTIN TIME 25.7 SECONDS (26.0-37.0)
[2021-01-13 09:16] LABS: CREATININE, serum 6.22 mg/dL (0.72-1.25); POTASSIUM 4.7 mmol/L (3.5-4.5)
--- NOTE | 2021-01-13 09:53 | NUR ---
Pt resting in bed awaiting heart cath. NPO since midnight. Reports constipation, dulcolax ordered and verbal orders to wait until after heart cath to administer. Pt denies further needs at this time. Continuing to monitor.
--- NOTE | 2021-01-13 10:00 | NUR ---
Pt off unit for heart cath at this time.
--- NOTE | 2021-01-13 11:15 | NUR ---
Notified by charge nurse that pt going to ICU from process laboratory specialist for a few hours before coming back to floor. Pt's escorted down to laborer wharf waiting room. Report called to ICU nurse.
--- NOTE | 2021-01-13 12:23 | NUR ---
ARRIVED IN ICU AT 1200 WITH CATH NURSE. AT BEDSIDE RIGHT GROIN ACCESS IS CLEAN AND INTACT WITH NO DRAINAGE ON 2X2 COVERED WITH TEGADERM. PATIENT IS STARTING HIS 4 HOUR LAY FLAT TIME. PATIENT ARRIVED WITH ANGIOMAX. PATIENT IS IN NO DISTRESS AND UNDERSTAND THAT HE NEEDS TO STAY FLAT FOR 4 HOURS AND TO NOTIFY NURSE IF HE FEELS PAIN OR WETNESS AT INSERTION SITE. IS AT BEDSIDE. CALL LIGHT IS IN REACH
--- NOTE | 2021-01-13 13:30 | NUR ---
Movie Editor spoke with bedside RN who advised patient is independent in his room.
--- NOTE | 2021-01-13 13:51 | NUR ---
Primary nurse was assisted with [phone] patient care by [employer] AD[employer] student Michelle Olson and [employer] instructor Zakiya Abarca MSN, RN
--- NOTE | 2021-01-13 14:28 | NUR ---
MR. LANDIN WAS TRASFERED TO THE MEDICAL FLOOR BED, RIGHT FEMORAL CHECKED FOR BLEEDING AND THERE WAS NONE, DRESSING CLEAN DRY AND INTACT. LEFT THE ICU FLOOR AT 1350 AND MR. LANDIN WAS RETURNED TO HIS ORIGINAL ROOM 311. CALL LIGHT IN REACHED AND WAITED FOR RFEDI SORENSEN TO RESUME CARE OF PATIENT.
--- NOTE | 2021-01-13 14:29 | NUR ---
Pt back in room. Report received from ICU nurse. Post-op vitals continued. Pt 45 minutes into 4 hour flat time. Flat time over at 1745. Brought pt ice chips. Denies further needs.
--- NOTE | 2021-01-13 20:24 | NUR ---
PT RESTING IN BED. EVENING MEDICATIONS GIVEN. SHIFT ASSESSMENT COMPLETED. R FEMORAL DRESSING C/D/I. PT DENIES HAVING ANY PAIN. WILL CONTINUE TO MONITOR.
[2021-01-14 04:52] VITALS: BP 127/55; PULSE 58; TEMP 98.1
[2021-01-14 04:54] VITALS: BP 127/55; PULSE 58; TEMP 98.1
--- NOTE | 2021-01-14 05:53 | NUR ---
PT HAD UNEVENTFUL NIGHT. DENIES ANY PAIN. R FEMORAL SITE STILL C/D/I. WILL CONTINUE TO MONITOR.
[2021-01-14 07:11] VITALS: BP 144/51; PULSE 67; TEMP 98.4
[2021-01-14 11:15] VITALS: BP 104/57; PULSE 55; TEMP 98.3
--- NOTE | 2021-01-14 14:14 | NUR ---
PT HAS HAD UNEVENTFUL MORNING. DR. MORA HAS ORDERED FOR HIM TO HAVE A SHORT SESSION HEMODIALYSIS TREATMENT. PT STATED THAT HE IS READY TO BE DISCHARGED. NO OTHER CONCERNS AT THIS TIME.
[2021-01-14 14:20] LABS: BASO % 0.4 % (0.0-2.0); EOS # 0.4 K/mm3 (0.0-0.7); EOS % 4.9 % (0-4.0); GRAN # 5.7 K/mm3 (1.4-6.5); HEMOGLOBIN 10.1 g/dl (13.5-18.0); LYMPH # 1.1 K/mm3 (1.2-3.4); LYMPH % 13.3 % (20.0-51.0); MEAN CELL VOLUME 105 fl (80.0-100.0); MEAN CORPUSCULAR HEMOGLOBIN 36 pg (27.0-31.0); MEAN CORPUSCULAR HGB CONC 35 g/dl (33.0-37.0); MEAN PLATELET VOLUME 8.6 fl (7.4-10.4); MONO # 1.1 K/mm3 (0.1-0.6); MONO % 12.7 % (1.7-9.3); PLATELET COUNT 239 K/mm3 (130-400); RED BLOOD COUNT 2.79 M/mm3 (4.20-5.60); REDCELL DISTRIBUTION WIDTH-CV 14.8 % (11.5-14.5)
[2021-01-14 14:24] LABS: HEMATOCRIT 29.2 % (42.0-52.0)
[2021-01-14 14:33] LABS: CALCIUM 9.2 mg/dL (8.4-10.2); CREATININE, serum 6.99 mg/dL (0.72-1.25)
[2021-01-14] MEDS ORDERED: PLAVIX 75MG TAB75 MG PO (15:03)
--- NOTE | 2021-01-14 15:30 | NUR ---
Pt in dialysis
[2021-01-14 16:51] VITALS: BP 135/55; PULSE 72; TEMP 98.3
--- NOTE | 2021-01-14 16:51 | NUR ---
Patient tolerated HD tx with 1L fluid removal. Next planned HD tx on Saturday01/16/21 @ [facility].
--- NOTE | 2021-01-14 17:09 | NUR ---
Pt back from dialysis and ready for discharge. Discharge instructions reviewed with pt and his . Verbalized understanding. INT removed from left wrist and telemetry called and notified. Pt escorted out at this time
== END 2021-01-14 17:11 | disposition home or self-care (01) | DRG 246 ==
LOC: COL.ER 13:32 → MEDICAL 14:38
PROVIDERS: Emergency Medicine; Nurse Practitioner; Nurse Practitioner Primary Care; ADMIT Internal Medicine Nephrology
PROC: 5A1D70Z Performance of Urinary Filtration, Intermittent, Less than 6 Hours Per Day (ICD-10-PCS; principal; 2021-01-11)
PROC: 027034Z Dilation of Coronary Artery, One Artery with Drug-eluting Intraluminal Device, Percutaneous Approach (ICD-10-PCS; 2021-01-13)
PROC: 4A023N7 Measurement of Cardiac Sampling and Pressure, Left Heart, Percutaneous Approach (ICD-10-PCS; 2021-01-13)
PROC: B2111ZZ Fluoroscopy of Multiple Coronary Arteries using Low Osmolar Contrast (ICD-10-PCS; 2021-01-13)
DX: I13.2 Hypertensive heart and chronic kidney disease with heart failure and with stage 5 chronic kidney disease, or end stage renal disease (principal); N18.6 End stage renal disease; J96.01 Acute respiratory failure with hypoxia; I25.10 Atherosclerotic heart disease of native coronary artery without angina pectoris; I50.32 Chronic diastolic (congestive) heart failure; I25.2 Old myocardial infarction; I48.0 Paroxysmal atrial fibrillation; I08.3 Combined rheumatic disorders of mitral, aortic and tricuspid valves; Z20.822 Contact with and (suspected) exposure to COVID-19; D63.1 Anemia in chronic kidney disease; M10.9 Gout, unspecified; E87.5 Hyperkalemia; E78.5 Hyperlipidemia, unspecified; R63.4 Abnormal weight loss; Z68.22 Body mass index [BMI] 22.0-22.9, adult; Z79.82 Long term (current) use of aspirin; Z79.01 Long term (current) use of anticoagulants; Z99.2 Dependence on renal dialysis; Z95.818 Presence of other cardiac implants and grafts; Z87.891 Personal history of nicotine dependence; Z95.5 Presence of coronary angioplasty implant and graft; Z88.0 Allergy status to penicillin
CPT/HCPCS: C1725; C1760; C1769; C1874; C1887; C1894; C9600; J0583; J1644; J2250; J3010; J7030; Q9967

== ENCOUNTER → 2021-10-18 | Outpatient (CLI) | payer MEDICARE, OTHER ==
[~2021-10-18] VITALS: Ht 180.3 cm; Wt 71.3 kg
--- NOTE | 2021-10-18 13:04 | NUR ---
PT AMBULATED ONTO THE UNIT WITH . PLACED IN ROOM 15, CHANGED INTO GOWN, AND ORIENTATED TO UNIT. VSS. CALL LIGHT WITHIN REACH
--- NOTE | 2021-10-18 13:50 | NUR ---
PT LEFT TO ETHNOARCHAEOLOGIST IN EU BED, WENT TO ETHNOARCHAEOLOGIST WAITING ROOM. VSS. TRANSFERED CARE TO RASHIDA SORENSEN.
--- NOTE | 2021-10-18 15:10 | NUR ---
PT RETURNED FROM ORTHOPEDICS PEDIATRIC PHYSICIAN. RESUMED CARE OF PT. VSS. PT AAWAKE AND ALERT.
--- NOTE | 2021-10-18 15:47 | NUR ---
PT DISCHARGED WITH TO HOME. ALL BELONGINGS LEFT WITH PT, EDUCATION WAS GIVEN, AND ALL PAPERWORK SIGNED.
== END ==
LOC: COL.CAR 11:40
DX: T82.858A Stenosis of other vascular prosthetic devices, implants and grafts, initial encounter (principal); Z87.891 Personal history of nicotine dependence
CPT/HCPCS: C1769; J2250; J3010

== ENCOUNTER 2022-06-11 14:21 | Inpatient (IN) | payer MEDICARE, OTHER ==
[~2022-06-11] VITALS: Ht 180.3 cm; Wt 66.3 kg
[2022-06-11 14:53] LABS: BASO # 0.1 K/mm3 (0.0-0.2); BASO % 0.7 % (0.0-2.0); EOS # 0.1 K/mm3 (0.0-0.7); EOS % 0.8 % (0.0-4.0); GRAN # 10.2 K/mm3 (1.4-6.5); GRAN % 85.3 % (42.2-75.2); HEMOGLOBIN 10.3 g/dl (13.5-18.0); LYMPH # 0.7 K/mm3 (1.2-3.4); LYMPH % 5.5 % (20.0-51.0); MEAN CELL VOLUME 106 fl (80.0-100.0); MEAN CORPUSCULAR HEMOGLOBIN 33 pg (27-31); MEAN CORPUSCULAR HGB CONC 31 g/dl (33.0-37.0); MEAN PLATELET VOLUME 8.5 fl (7.4-10.4); MONO # 0.9 K/mm3 (0.1-0.6); MONO % 7.3 % (1.7-9.3); PLATELET COUNT 255 K/mm3 (130-400); RED BLOOD COUNT 3.16 M/mm3 (4.20-5.60); REDCELL DISTRIBUTION WIDTH-CV 15.6 % (11.5-14.5)
[2022-06-11 14:56] LABS: HEMATOCRIT 33.4 % (42.0-52.0)
[2022-06-11 15:01] LABS: INR 1.3 (0.8-3.0); PROTHROMBIN TIME 14.5 SECONDS (9.7-12.8)
[2022-06-11 15:11] LABS: ALBUMIN 3.1 gm/dL (3.4-4.8); BILIRUBIN,TOTAL 0.5 mg/dL (0.2-1.2); CALCIUM 9.3 mg/dL (8.4-10.2); CREATININE, serum 3.11 mg/dL (0.72-1.25); POTASSIUM 4.5 mmol/L (3.5-4.5)
[2022-06-11 15:20] LABS: TROPONIN-I 0.201 ng/mL (0.00-0.033)
[2022-06-11] MEDS ORDERED: REGLAN 5MG T5 MG/TAB PO (15:46)
[2022-06-11 19:41] VITALS: BP 134/59; PULSE 75; TEMP 98.5
[2022-06-12] VITALS (7 sets, daily range): BP systolic 107–148; BP diastolic 57–63; PULSE 64–78; TEMP 97.5–98.3
--- NOTE | 2022-06-12 02:30 | NUR ---
PATIENT ASSESSED AND GIVEN NIGHTLY MEDICATIONS. HE IS AOX4. ADMITTED FROM ED TO ROOM 356. CURRENTLY ON 2L OF OXYGEN. ONLY SHORT OF BREATH WITH EXERTION. RIGHT FISTULA WITH BANDAGE IN PLACE. TROPONINS ELEVATED TRENDING 0.201, 0.292. WILL HAVE DIALYSIS AT 0830 TODAY. ON A DIALYSIS RENAL DIET WITH A 1250ML FLUID REST. CXRAY SHOWED CARDIOMEGALY WITH VASCULAR CONGESTION AND BILATERAL PLEURAL EFFUSIONS. CREA- 3.11. WBC- 12.0. BNP- 887. CALL LIGHT IN REACH. BED IN LOWEST POSITION.
--- NOTE | 2022-06-12 08:00 | NUR ---
Patient is resting in bed, alert and oriented x 4, aware of dialysis scheduled at 0830. Assessnent completed, no other needs at this time. Call light within reach.
--- NOTE | 2022-06-12 11:24 | NUR ---
ARSALAN met with the patient's , Mahsa (ph#[phone], h.ph#[phone]), to discuss discharge plan. The patient was in dialysis. The patient lives in [place] with his . Mahsa reports that he is normally independent with ADLs and has a cane available, when needed. The patient's PCP is Dr. Anderson and he obtains his medications from [facility]. The patient's DPOA-HC is in EMR and it designates his . The alternate is his daughter, Rebeca. Mahsa reports that the plan is for the patient to return back home with her upon discharge. No additional needs at this time. *Discharge plan: home with *
--- NOTE | 2022-06-12 11:44 | NUR ---
Initial visit: Pt was out of the room. was present. No needs right now. Newspaper Vendor will follow up as needed.
--- NOTE | 2022-06-12 18:48 | NUR ---
Report given to night RN.
--- NOTE | 2022-06-12 18:51 | NUR ---
Patient has had no issues after dialysis. Report given to bernarda SORENSEN.
--- NOTE | 2022-06-13 02:01 | NUR ---
PATIENT ASSESSED AND GIVEN NIGHTLY MEDICATIONS. CONTINUES ON 2L OF OXYGEN, RA IS HIS BASELINE. CHEST XRAY PLANNED FOR THIS MORNING. VAHE FISTULA. ON A DIALYSIS DIET WITH A 1250ML FLUID REST. PT/OT ORDERED. CALL LIGHT IN REACH. BED IN LOWEST POSITION. GIVEN BENADRYL ONE TIME FOR HIS FISTULA ITCHING DUE TO THE TAPE/GAUZE.
[2022-06-13 03:16] VITALS: BP 129/56; PULSE 67; TEMP 97.8
[2022-06-13 07:01] LABS: SQUAMOUS EPITHELIAL 0-2 /hpf (0-10); URINE BACTERIA None Seen /hpf (NONE SEEN); URINE RBC 0-2 /hpf (0-2)
[2022-06-13 07:02] LABS: COLLECTION METHOD CLEAN CATCH; PH 8.5 (5.0-8.5); URINE APPEARANCE Clear (CLEAR/HAZY); URINE BLOOD Negative (NEGATIVE); URINE COLOR Yellow (YELLOW); URINE GLUCOSE Negative (NEGATIVE); URINE KETONE Negative (NEGATIVE); URINE NITRATE Negative (NEGATIVE); URINE PROTEIN(semi-quant) 3+ (NEGATIVE); URINE UROBILINOGEN 0.2 E.U/dL (0.2-1.0)
[2022-06-13 07:19] VITALS: BP 145/62; PULSE 70; TEMP 97.7
--- NOTE | 2022-06-13 09:06 | NUR ---
Shift assessment is coompleted. Pt. is transported to do dialysis via wheelchair.
[2022-06-13 12:00] VITALS: BP 114/53; PULSE 74; TEMP 97.5
[2022-06-13 12:20] LABS: BASO # 0.1 K/mm3 (0.0-0.2); BASO % 0.8 % (0.0-2.0); EOS # 0.3 K/mm3 (0.0-0.7); EOS % 4.5 % (0.0-4.0); GRAN # 5.2 K/mm3 (1.4-6.5); GRAN % 78.3 % (42.2-75.2); HEMOGLOBIN 10.5 g/dl (13.5-18.0); LYMPH # 0.5 K/mm3 (1.2-3.4); LYMPH % 7.2 % (20.0-51.0); MEAN CELL VOLUME 107 fl (80.0-100.0); MEAN CORPUSCULAR HEMOGLOBIN 33 pg (27-31); MEAN CORPUSCULAR HGB CONC 31 g/dl (33.0-37.0); MEAN PLATELET VOLUME 8.5 fl (7.4-10.4); MONO # 0.6 K/mm3 (0.1-0.6); MONO % 8.4 % (1.7-9.3); PLATELET COUNT 291 K/mm3 (130-400); RED BLOOD COUNT 3.21 M/mm3 (4.20-5.60)
[2022-06-13 12:24] LABS: HEMATOCRIT 34.2 % (42.0-52.0)
[2022-06-13 12:28] LABS: ALBUMIN 2.9 gm/dL (3.4-4.8); CALCIUM 9.7 mg/dL (8.4-10.2); CREATININE, serum 2.34 mg/dL (0.72-1.25)
--- NOTE | 2022-06-13 12:29 | NUR ---
Pt. was transported for dialysis via wheelchair at 0803. Pt. denies any pain or discomfort at this time. Pt is transported back to his room at 1122 via whell chair. Pt. is relaxed and denies any pain after the procedure and resting in his room.
[2022-06-13 15:18] VITALS: BP 103/52; PULSE 77; TEMP 97.7
[2022-06-13 20:21] VITALS: BP 114/54; PULSE 74; TEMP 99.1
[2022-06-14] VITALS (7 sets, daily range): BP systolic 112–132; BP diastolic 43–59; PULSE 62–77; TEMP 97.6–98.6
[2022-06-14 07:06] LABS: ALBUMIN 2.5 gm/dL (3.4-4.8); CALCIUM 8.7 mg/dL (8.4-10.2); CREATININE, serum 3.82 mg/dL (0.72-1.25); PHOSPHOROUS 2.6 mg/dL (2.3-4.7); POTASSIUM 4.5 mmol/L (3.5-4.5)
[2022-06-14 07:26] LABS: BASO # 0.1 K/mm3 (0.0-0.2); BASO % 1.1 % (0.0-2.0); EOS # 0.3 K/mm3 (0.0-0.7); EOS % 5.4 % (0.0-4.0); GRAN # 4.6 K/mm3 (1.4-6.5); GRAN % 73.3 % (42.2-75.2); LYMPH # 0.6 K/mm3 (1.2-3.4); LYMPH % 10.2 % (20.0-51.0); MEAN CORPUSCULAR HGB CONC 32 g/dl (33.0-37.0); MONO # 0.6 K/mm3 (0.1-0.6); MONO % 9.7 % (1.7-9.3); PLATELET COUNT 277 K/mm3 (130-400); RED BLOOD COUNT 2.86 M/mm3 (4.20-5.60); REDCELL DISTRIBUTION WIDTH-CV 14.7 % (11.5-14.5)
[2022-06-14 07:27] LABS: HEMATOCRIT 29.3 % (42.0-52.0); HEMOGLOBIN 9.4 g/dl (13.5-18.0); MEAN CORPUSCULAR HEMOGLOBIN 33 pg (27-31)
[2022-06-14 07:29] LABS: MEAN CELL VOLUME 102 fl (80.0-100.0)
--- NOTE | 2022-06-14 08:57 | NUR ---
Patient is resting in bed, alert and oriented x 4, VSS. Denies any pain or discomfort at this time. At RA. Assessment completed, meds provided. No other needs at this time. Call light within reach.
--- NOTE | 2022-06-14 10:47 | NUR ---
An exercise oximetry was ordered. RT notified ARSALAN that the patient qualified for 3 liters of oxygen with ambulation. ARSALAN met with the patient to update and informed him of the local DME companies. The patient chose [facility]. SW also presented and read the IM form outloud to him. The patient verbalized understanding and signed the form. He declined a copy. ARSALAN contacted and faxed the oxygen order to Prabhjot at [facility]. The patient's , Mahsa, then arrived to the hospital. ARSALAN met with the patient and Mahsa to update Mahsa on the oxygen. NOEL Damon, was at bedside. Marisol notified ARSALAN that the patient will discharge tomorrow. The patient's is in agreement to the plan. ARSALAN updated Prabhjot at [facility]. *Discharge plan: home with *
--- NOTE | 2022-06-14 22:54 | NUR ---
Patient assessed around 2124. Alert and oriented, and able to make needs known. Denies having pain and discomfort. Asking about home oxygen. surgical services tech note showed that it was being worked on. Currently on oxygen at 2 L/min via NC. Denies SOB and dyspnea. Voices no questions, needs, or concerns at this time. In bed with call light within reach.
[2022-06-15 03:29] VITALS: BP 146/58; PULSE 69; TEMP 98.2
--- NOTE | 2022-06-15 04:52 | NUR ---
Patient has voiced no questions, needs, or concerns at this time. On oxygen at 2 L/min via NC. In bed with call light within reach.
[2022-06-15 06:39] LABS: BASO % 0.7 % (0.0-2.0); EOS # 0.3 K/mm3 (0.0-0.7); EOS % 5.3 % (0.0-4.0); GRAN # 4.3 K/mm3 (1.4-6.5); GRAN % 73.1 % (42.2-75.2); LYMPH # 0.6 K/mm3 (1.2-3.4); LYMPH % 9.8 % (20.0-51.0); MEAN CELL VOLUME 101 fl (80.0-100.0); MEAN CORPUSCULAR HGB CONC 33 g/dl (33.0-37.0); MEAN PLATELET VOLUME 8.7 fl (7.4-10.4); MONO # 0.6 K/mm3 (0.1-0.6); MONO % 10.8 % (1.7-9.3); PLATELET COUNT 271 K/mm3 (130-400); RED BLOOD COUNT 2.93 M/mm3 (4.20-5.60); REDCELL DISTRIBUTION WIDTH-CV 14.6 % (11.5-14.5)
[2022-06-15 06:42] LABS: HEMATOCRIT 29.5 % (42.0-52.0); HEMOGLOBIN 9.6 g/dl (13.5-18.0); MEAN CORPUSCULAR HEMOGLOBIN 33 pg (27-31)
[2022-06-15 06:50] LABS: ALBUMIN 2.6 gm/dL (3.4-4.8); CALCIUM 8.9 mg/dL (8.4-10.2); CREATININE, serum 4.98 mg/dL (0.72-1.25); POTASSIUM 4.6 mmol/L (3.5-4.5)
[2022-06-15 07:10] VITALS: BP 149/55; PULSE 66; TEMP 97.5
--- NOTE | 2022-06-15 07:35 | NUR ---
PATIENT AT DIALYSIS AT 0730 PER PERSONNEL SPECIALIST REQUEST.
--- NOTE | 2022-06-15 08:11 | NUR ---
This SW has secured home oxygen for the patient at [facility] yesterday, 06/15. [facility] planned to deliver the patient's oxygen yesterday. Due to NOEL Damon, informing this SW that the patient was not going to be discharged until today, 06/16, after dialysis. [facility].
--- NOTE | 2022-06-15 08:23 | NUR ---
Assessment completed. Patient alert and oriented x 4. Patient states no needs at this time. Call light within reach.
--- NOTE | 2022-06-15 11:17 | NUR ---
ARSALAN contacted Prabhjot at [facility] and confirmed that the patient's oxygen would be delivered to his room today. ARSALAN updated the patient's RN and NOEL Damon. The patient is to discharge back home with his today, 06/15. No additional needs at this time.
[2022-06-15 11:38] VITALS: BP 105/57; PULSE 78; TEMP 97.3
--- NOTE | 2022-06-15 13:09 | NUR ---
PATIENT DISCHARGED PER ORDER. IV TO LEFT HAND REMOVED WITH CATHETER INTACT, NO BLEEDING NOTED, GAUZE DRESSING APPLIED. HOME O2 DELIVERED AND SET UP FOR PATIENT. DISCHARGE TEACHING PROVIDED ON DIAGNOSIS, MEDICATIONS, AND FOLLOW UPS. PATIENT AND DENY FURTHER QUESTIONS OR CONCERNS. PATIENT TO BE ESCORTED OUT BY VIA [facility] STAFF.
[2022-06-22] MEDS ORDERED: SYNTHROID 0.10.15 MG PO (01:20)
== END 2022-06-15 13:30 | disposition home or self-care (01) | DRG 189 ==
LOC: COL.ER 14:21 → MEDICAL 15:32
PROVIDERS: Personal Emergency Response Attendant; Registered Nurse; ADMIT Internal Medicine Nephrology
PROC: 5A1D70Z Performance of Urinary Filtration, Intermittent, Less than 6 Hours Per Day (ICD-10-PCS; principal; 2022-06-12)
DX: J96.21 Acute and chronic respiratory failure with hypoxia (principal); N18.6 End stage renal disease; I12.0 Hypertensive chronic kidney disease with stage 5 chronic kidney disease or end stage renal disease; I48.91 Unspecified atrial fibrillation; I25.10 Atherosclerotic heart disease of native coronary artery without angina pectoris; M10.9 Gout, unspecified; E78.5 Hyperlipidemia, unspecified; R77.8 Other specified abnormalities of plasma proteins; D72.829 Elevated white blood cell count, unspecified; R63.4 Abnormal weight loss; K59.00 Constipation, unspecified; Z99.2 Dependence on renal dialysis; Z79.890 Hormone replacement therapy; Z79.82 Long term (current) use of aspirin; Z79.899 Other long term (current) drug therapy; Z79.02 Long term (current) use of antithrombotics/antiplatelets; Z87.891 Personal history of nicotine dependence
CPT/HCPCS: Q5105